=== PATIENT | male | born 1950 | race American Indian/Alaskan Native ===

== ENCOUNTER 2017-07-17 09:37 | Day surgery (SDC) | payer MEDICARE, OTHER ==
[~2017-07-17 09:37] MED LIST: NACL 0.9% 1000 ML 1,000 ML IV SCH
[2017-07-17] MEDS ORDERED: DIPRIVAN 10 MG/ML IV ONE ×2 (11:05)
--- NOTE | 2017-07-17 11:05 | Anesthesia Consultation ---
Anesthesia Consult and Med Hx Date of service: 07/17/17 - Airway Anesthetic Teeth Evaluation: Edentulous ROM Head & Neck: Adequate Mental/Hyoid Distance: Adequate Mallampati Class: Class II Intubation Access Assessment: Probably Good - Pulmonary Exam CTA: Yes - Cardiac Exam Cardiac Exam: RRR - Pre-Operative Health Status ASA Pre-Surgery Classification: ASA3 Proposed Anesthetic Plan: MAC - Pulmonary Hx Sleep Apnea: Yes (cpap) - Cardiovascular System Hx Hypertension: Yes Hx Coronary Artery Disease: Yes Hx Heart Attack/AMI: Yes (Cabg 2003) Hx Angina: No
--- NOTE | 2017-07-17 11:05 | Anesthesia Day of Surgery ---
Anesthesia Day of Surgery - Day of Surgery Patient Examined: Yes Patient H&P Reviewed: Yes Patient is NPO: Yes
[2017-07-17] MEDS ORDERED: WATER FOR IRRIG STERILE IR ONE (11:06)
--- NOTE | 2017-07-17 11:46 | Short Stay Summary ---
Short Stay Documentation Date of service: 07/17/17 Narrative H&P: The patient presents for routine screening colonoscopy. Last study 10 years ago. - History Past Medical History: CAD, hypertension Past Surgical History: CABG Social history: no significant social history, , lives with family - Allergies and Medications Current Medications: Allergies YOSHI Inhibitors Adverse Reaction (Verified 07/17/17 10:21) Swelling Active Medications Sodium Chloride (Nacl 0.9% 1000 Ml) 1,000 mls @ 50 mls/hr IV DIRECT SALLY Last Admin: 07/17/17 10:21 Dose: 50 mls/hr - Physical exam General appearance: no acute distress, well-nourished Integumentary: no rash, no growths, no abnormal pigmentation HEENT: Atraumatic, PERRLA, EOMI, Mucous membr. moist/pink Lungs: Clear to auscultation, Normal air movement Breasts: deferred Heart: Regular rate, Normal S1, Normal S2, No murmurs Gastrointestinal: normoactive bowel sounds, no tenderness, no distended, no masses, no guarding, no organomegaly Male Genitourinary: deferred Rectal Exam: normal exam-external/orifice, normal rectal tone, no mass Extremities: no ischemia, pulses intact, pulses symmetrical, No edema, normal temperature, normal color, Full ROM Neurological: Normal gait, Normal speech, Strength at 5/5 X4 ext, Normal tone, Sensation intact, Cranial nerves 3-12 NL - Brief post op/procedure progress note Date of procedure: 07/17/17 Findings: see dictated report. Estimated blood loss: none Pathology: none Condition: stable - Disposition Condition at discharge: Good Disposition: DC-01 TO HOME OR SELFCARE - Discharge Diagnoses (1) Colon cancer screening Status: Acute Short Stay Discharge Plan Activity: other (no driving for 24 hours) Weight Bearing Status: Weight Bear as Tolerated Diet: regular Follow up with: BAN TEJADA MD [Primary Care Provider] - 7 Days
--- NOTE | 2017-07-17 11:48 | Operative Report ---
Operative Report Operative Report: Date of procedure: 07/17/2017 Preprocedure diagnosis: Colon cancer screening, last study 10 years ago. Post procedure diagnosis: Rare diverticula, small internal hemorrhoids. Procedure: Colonoscopy to the cecum Endoscopist: Dr. Salvador Anesthesia: Monitored anesthesia care per anesthesia department Estimated blood loss: 0 Medications: Monitored anesthesia care. See separate report by anesthesia for details. After careful discussion of the nature and purpose of the procedure as well as details of the technique risks benefits and alternatives the patient gave consent. Please see recent history and physical from the office. The patient was placed in the left lateral decubitus position and medicated per anesthesia. A rectal exam was performed sphincter tone was normal there were no masses palpable. The Gloople 570 scope was passed transanally and advanced under continuous direct vision without difficulty to the cecum. The colon was well prepared. The cecum was normal. The ascending colon was normal and on forward and retroflexed views. The transverse colon, descending colon, and sigmoid colon were normal except for a few rare diverticula in the sigmoid colon. The rectum revealed small hemorrhoids but otherwise was normal on forward and retroflexed views. The procedure was well-tolerated overall and the patient was observed in recovery. Conclusions: Rare left colon diverticula, small internal hemorrhoids. Plan: Repeat colonoscopy in 10 years, sooner if clinically indicated. Signed electronically: Agustin Salvador M.D.
[2017-07-17 12:11] VITALS: BP 133/83
== END 2017-07-17 09:38 | disposition home or self-care (01) ==
LOC: GIO 09:37
PROVIDERS: ATTEND Internal Medicine Gastroenterology
DX: Z12.11 Encounter for screening for malignant neoplasm of colon (principal); K57.30 Diverticulosis of large intestine without perforation or abscess without bleeding; K64.8 Other hemorrhoids; I25.10 Atherosclerotic heart disease of native coronary artery without angina pectoris; I10 Essential (primary) hypertension; G47.30 Sleep apnea, unspecified; Z99.89 Dependence on other enabling machines and devices; Z95.1 Presence of aortocoronary bypass graft; Z88.8 Allergy status to other drugs, medicaments and biological substances
CPT/HCPCS: G0121; J2704; J7030